=== PATIENT | male | born 1950 | race Caucasian/White ===

== ENCOUNTER → 2017-05-29 | Day surgery (SDC) | payer BC ==
[2017-05-20 08:24] VITALS: BMI 29.0
[~2017-05-29] VITALS: Ht 182.9 cm; Wt 96.4 kg
[~2017-05-29] MED LIST: ALLO100T PO; AMLO-114 PO; ASPITAB2; ATOR-54 PO; ATROPINE SULFATE 0.1 MG/ML 5ML SYR IV PRN; CHOL1000 PO; CYAN10005 PO; EpHEDrine SULFATE INJ 50 MG/ML AMP IV PRN; LIDOCAINE HCL 2% 2 ML VIAL (20MG/ML) ONE; LSN/20125 PO; METO25TA56 PO; MULTTAB58 PO; OMEG10007 PO; ONDANSETRON INJ 2 MG/ML 2 ML VIAL IV PRN; PROPOFOL IV EMULSION 10 MG/ML 20 ML VIAL IV ONE
[2017-05-29 08:45] VITALS: Ht 182.9 cm; Wt 96.4 kg
--- NOTE | 2017-05-29 09:02 | Endo History and Physical ---
History & Physical Date of Service: May 29, 2017. Chief Complaint: HX POLYPS, 5 YEAR F/U Referring Physician: DR. DANIELA DUBOIS History of Present Illness Patient with a history of colon polyps for surveillance colonoscopy today. He is no specific symptoms this morning. Past Surgical History Hx Cardiac Surgery: Yes (CARDIAC ABLATION X2) Hx Internal Defibrillator: No Hx Pacemaker: No Hx Abdominal Surgery: No Hx of Implantable Prosthesis: No Hx Post-Op Nausea and Vomiting: No Hx Cancer Surgery: No Hx Thoracic Surgery: No Hx Orthopedic: No Hx Urinary Tract Surgery: No Family History Colon CA Social History Smoking Status: Never Smoker Hx Substance Use: No Hx Alcohol Use: Yes (OCCASIONAL) Allergies Coded Allergies: Amoxicillin (Verified Allergy, Unknown, RASH, 05/20/17) Clavulanic Acid (Verified Allergy, Unknown, RASH, 05/20/17) Current Medications Reported Home Medications Medications Dose Route/Sig Max Daily Dose Days Date Category Ascriptin (Aspirin Buffered (Al Hydrox-Mg) 1 Tab Tab 81 Mg DAILY 05/29/17 Reported Vitamin D3 (Cholecalciferol) 1,000 Unit Tab 1 Tab PO DAILY 05/20/17 Reported Vitamin B-12 (Cyanocobalamin) 1,000 Mcg Tab 1,000 Mcg PO DAILY 05/20/17 Reported Norvasc (Amlodipine Besylate) 10 Mg Tab 10 Mg PO QAM 05/20/17 Reported Zyloprim (Allopurinol) 100 Mg Tab 100 Mg PO BID 05/20/17 Reported Lopressor (Metoprolol Tartrate) 25 Mg Tab 25 Mg PO BID 05/20/17 Reported [place]-3 (Fish Oil) 1 Ea Cap 2 Cap PO DAILY 11/19/11 Reported Multivitamin (Multiple Vitamin) 1 Tab Tab 1 Tab PO DAILY 11/19/11 Reported Zestoretic 20MG/12.5MG (HCTZ/Lisinopril) 1 Ea Tab 1 Tab PO QAM 11/19/11 Reported Lipitor (Atorvastatin) 20 Mg Tab 20 Mg PO QPM 11/19/11 Reported Vital Signs Weight (Kilograms): 96.36 Height (Feet): 6 Height (Inches): 0 Date Time Temp Pulse Resp B/P (MAP) Pulse Ox O2 Delivery O2 Flow Rate FiO2 05/29/17 08:57 36.4 64 16 153/83 (106) 96 Room Air Physical Exam General Appearance: no apparent distress Respiratory/Chest: Auscultation: breath sounds normal Cardiovascular: Heart Auscultation: RRR Abdomen: Inspection & Palpation: soft Assessment and Plan Colonoscopy today for surveillance of colonic polyps. Bleeding, infection, perforation, pain and the potential for missed colonic polyps.
--- NOTE | 2017-05-29 10:01 | Discharge Instructions ---
Endoscopy Patient Instructions Date / Procedure(s) Performed May 29, 2017. Colonoscopy Allergy Information Coded Allergies: Amoxicillin (Verified Allergy, Unknown, RASH, 05/20/17) Clavulanic Acid (Verified Allergy, Unknown, RASH, 05/20/17) Discharge Date / Findings May 29, 2017. 2 colon polyps Diverticulosis of the colon Hemorrhoids Medication Instructions Reported Home Medications Medications Dose Route/Sig Max Daily Dose Days Date Category Ascriptin (Aspirin Buffered (Al Hydrox-Mg) 1 Tab Tab 81 Mg DAILY 05/29/17 Reported Vitamin D3 (Cholecalciferol) 1,000 Unit Tab 1 Tab PO DAILY 05/20/17 Reported Vitamin B-12 (Cyanocobalamin) 1,000 Mcg Tab 1,000 Mcg PO DAILY 05/20/17 Reported Norvasc (Amlodipine Besylate) 10 Mg Tab 10 Mg PO QAM 05/20/17 Reported Zyloprim (Allopurinol) 100 Mg Tab 100 Mg PO BID 05/20/17 Reported Lopressor (Metoprolol Tartrate) 25 Mg Tab 25 Mg PO BID 05/20/17 Reported [place]-3 (Fish Oil) 1 Ea Cap 2 Cap PO DAILY 11/19/11 Reported Multivitamin (Multiple Vitamin) 1 Tab Tab 1 Tab PO DAILY 11/19/11 Reported Zestoretic 20MG/12.5MG (HCTZ/Lisinopril) 1 Ea Tab 1 Tab PO QAM 11/19/11 Reported Lipitor (Atorvastatin) 20 Mg Tab 20 Mg PO QPM 11/19/11 Reported Provider Instructions Activity Restrictions - No exercising or heavy lifting for 24 hours. - Do not drink alcohol the day of the procedure. - Do not drive a car or operate machinery until the day after the procedure. - Do not make any important decisions or sign important papers in 24 hours after the procedure. Following Day: - Return to full activity which may include returning to work/school. Diet Start your diet with liquids and light foods (jello, soup, juice, toast). Then eat your usual diet if not nauseated. Treatment For Common After Affects For mild abdominal pain, bloating, or excessive gas: - Rest - Eat lightly - Lie on right side Follow-Up Information Follow-up with DR. DANIELA DUBOIS as scheduled Repeat colonoscopy in 5 years Consider addition of a fiber supplement (Fiber gummy 1-2 per day) Anesthesia Information What You Should Know You have had a procedure that required some medicine to reduce anxiety and discomfort. This treatment is called moderate sedation. After receiving the treatment, you may be sleepy, but you will be able to breathe on your own. The effects of the treatment may last for several hours. Follow these instructions along with Activity/Diet recommendations noted above: * Do NOT do anything where dizziness or clumsiness would be dangerous. * Rest quietly at home today, then you can be up and about tomorrow. * Have a responsible person stay with you the rest of today. * You may have had an I.V. today. If so, you may take the dressing off later today. Recommendations Call your doctor if: * Trouble breathing * Continuous vomiting for more than 24 hours * Temperature above 101 degrees * Severe abdominal pain or bloating * Pain not relieved by pain medicine ordered * There is increased drainage or redness from any incision * A large amount of rectal bleeding greater than 2-3 tablespoons. (If you had a polyp/s removed or have hemorrhoids, a small amount of blood - from the rectum is to be expected.) * You have any unanswered questions or concerns. IN THE EVENT OF A SERIOUS EMERGENCY, GO TO THE NEAREST EMERGENCY ROOM Your discharge instructions were prepared by provider Yaneth Garcia. Patient Instructions Signature Page Gene Natalia Patient (or Guardian) Signature/Date: I have read and understand the instructions given to me by my caregivers. Caregiver/RN/Doctor Signature/Date: The above-named patient and/or guardian has received patient instructions on this date. + Original Patient Signature Page (only) stays with chart. Please make copy for patient.
--- NOTE | 2017-05-29 10:06 | GI REPORT ---
Procedure Date: 05/29/2017 9:37 AM Procedure: Colonoscopy Indications: High risk colon cancer surveillance: Personal history of colonic polyps Medicines: Monitored Anesthesia Care Complications: No immediate complications. Estimated blood loss: Minimal. Estimated Blood Loss: Estimated blood loss was minimal. Procedure: Pre-Anesthesia Assessment: - Prior to the procedure, a History and Physical was performed, and patient medications, allergies and sensitivities were reviewed. The patient's tolerance of previous anesthesia was reviewed. - The risks and benefits of the procedure and the sedation options and risks were discussed with the patient. All questions were answered and informed consent was obtained. - Patient identification and proposed procedure were verified prior to the procedure by the physician, the nurse and the inspector packager. The procedure was verified in the procedure room. - Pre-procedure physical examination revealed no contraindications to sedation. - ASA Grade Assessment: II - A patient with mild systemic disease. - After reviewing the risks and benefits, the patient was deemed in satisfactory condition to undergo the procedure. - The anesthesia plan was to use monitored anesthesia care (MAC). - Immediately prior to administration of medications, the patient was re-assessed for adequacy to receive sedatives. - The heart rate, respiratory rate, oxygen saturations, blood pressure, adequacy of pulmonary ventilation, and response to care were monitored throughout the procedure. - The physical status of the patient was re-assessed after the procedure. After I obtained informed consent, the scope was passed under direct vision. Throughout the procedure, the patient's blood pressure, pulse, and oxygen saturations were monitored continuously. The scope was introduced through the anus and advanced to the terminal ileum. The colonoscopy was performed without difficulty. The patient tolerated the procedure well. The quality of the bowel preparation was good. Findings: The perianal and digital rectal examinations were normal. Pertinent negatives include normal sphincter tone. The terminal ileum appeared normal. A 5 mm polyp was found in the ascending colon. The polyp was sessile. The polyp was removed with a cold snare. Resection and retrieval were complete. Estimated blood loss was minimal. Internal hemorrhoids were found during retroflexion. The hemorrhoids were moderate. A 6 mm polyp was found in the rectum. The polyp was sessile. The polyp was removed with a cold snare. Resection and retrieval were complete. Estimated blood loss was minimal. Multiple small and large-mouthed diverticula were found in the sigmoid colon and descending colon. The exam was otherwise without abnormality. Impression: - One 5 mm polyp in the ascending colon, removed with a cold snare. Resected and retrieved. - Internal hemorrhoids. - One 6 mm polyp in the rectum, removed with a cold snare. Resected and retrieved. - Severe diverticulosis in the sigmoid colon and in the descending colon. - The examination was otherwise normal. Recommendation: - Discharge patient to home (ambulatory). - Advance diet as tolerated daily. - Await pathology results. - Repeat colonoscopy in 5 years for surveillance. - Use fiber, for example Citrucel, Fibercon, Konsyl or Metamucil. - Return to my office PRN. Yaneth Garcia D.O. Yaneth Garcia, 05/29/2017 10:06:03 AM This report has been signed electronically. Note Initiated On: 05/29/2017 9:37 AM I attest to the content of the Intraoperative Record and orders documented therein, exceptions below
--- NOTE | 2017-05-29 10:16 | Anesthesiology Progress Note ---
Anesthesia Post Op Note Date & Time May 29, 2017 at 10:16 Vital Signs Pain Intensity: 0 Vital Signs Past 12 Hours Date Time Temp Pulse Resp B/P (MAP) Pulse Ox O2 Delivery O2 Flow Rate FiO2 05/29/17 10:02 61 16 99/58 (72) 96 Room Air 05/29/17 08:57 36.4 64 16 153/83 (106) 96 Room Air Notes Mental Status: alert / awake / arousable, participated in evaluation Pt Amnestic to Procedure: Yes Nausea / Vomiting: adequately controlled Pain: adequately controlled Airway Patency, RR, SpO2: stable & adequate BP & HR: stable & adequate Hydration State: stable & adequate Anesthetic Complications: no major complications apparent
[2017-05-29 10:32] VITALS: BP 128/72; PULSE 58; O2SAT 97
== END | disposition home or self-care (01) ==
LOC: C.GI 08:34
PROVIDERS: ATTEND Internal Medicine Gastroenterology
DX: Z12.11 Encounter for screening for malignant neoplasm of colon (principal); D12.2 Benign neoplasm of ascending colon; K64.8 Other hemorrhoids; K62.1 Rectal polyp; K57.30 Diverticulosis of large intestine without perforation or abscess without bleeding; I10 Essential (primary) hypertension; E78.5 Hyperlipidemia, unspecified; Z88.0 Allergy status to penicillin; Z88.2 Allergy status to sulfonamides; Z85.038 Personal history of other malignant neoplasm of large intestine; Z79.899 Other long term (current) drug therapy; Z80.0 Family history of malignant neoplasm of digestive organs

== ENCOUNTER → 2017-07-24 | Outpatient (CLI) | payer BC ==
[~2017-07-24] MED LIST changes: -ATROPINE SULFATE 0.1 MG/ML 5ML SYR IV PRN; -EpHEDrine SULFATE INJ 50 MG/ML AMP IV PRN; -LIDOCAINE HCL 2% 2 ML VIAL (20MG/ML) ONE; -ONDANSETRON INJ 2 MG/ML 2 ML VIAL IV PRN; -PROPOFOL IV EMULSION 10 MG/ML 20 ML VIAL IV ONE
[2017-07-24 13:42] LABS: BASO % 0.7 %; BASO ABS # 0.04 K/uL (0-0.2); EOS % 2.7 %; EOS ABS # 0.16 K/uL (0-0.5); HEMATOCRIT 41.5 % (42-52); HEMOGLOBIN 14.2 g/dL (14.0-18.0); IG# 0.02 K/uL (0.00-0.02); LYMPH % 31.8 %; LYMPH ABS # 1.85 K/uL (1.2-3.4); MEAN CELL VOLUME 95.6 fL (80-100); MEAN CORPUSCULAR HEMOGLOBIN 32.7 pg (25-34); MEAN CORPUSCULAR HGB CONC 34.2 g/dl (32-36); MEAN PLATELET VOLUME 10.7 fL (7.4-10.4); MONO % 10.1 %; MONO ABS # 0.59 K/uL (0.11-0.59); NEUT % 54.4 %; NEUT ABS # 3.16 K/uL (1.4-6.5); PLATELET COUNT 179 K/uL (130-400); RED CELL DISTRIBUTION WIDTH CV 13.9 % (11.5-14.5); RED CELL DISTRIBUTION WIDTH SD 48.6 fL (36.4-46.3); WHITE BLOOD COUNT 5.82 K/uL (4.8-10.8)
[2017-07-24 14:34] LABS: ALBUMIN 3.9 gm/dl (3.4-5.0); ALT/SGPT 31 U/L (12-78); AST/SGOT 19 U/L (15-37); BLOOD UREA NITROGEN 16 mg/dl (7-18); CALCIUM 8.8 mg/dl (8.5-10.1); CARBON DIOXIDE 24 mmol/L (21-32); CHOLESTEROL 205 mg/dl (0-200); CREATININE 0.94 mg/dl (0.60-1.40); GLUCOSE 97 mg/dl (70-99); POTASSIUM 4.2 mmol/L (3.5-5.1); SODIUM 140 mmol/L (136-145)
[2017-07-24 14:45] LABS: ALKALINE PHOSPHATASE 56 U/L (45-117); LDL CHOLESTEROL CALCULATED 118 mg/dl; TOTAL PROTEIN 7.6 gm/dl (6.4-8.2)
== END | disposition home or self-care (01) ==
LOC: C.LABBC 10:13
PROVIDERS: ATTEND Internal Medicine
DX: E78.1 Pure hyperglyceridemia (principal); E78.5 Hyperlipidemia, unspecified; M10.9 Gout, unspecified; I10 Essential (primary) hypertension; I48.91 Unspecified atrial fibrillation; Z86.010 Personal history of colon polyps

== ENCOUNTER → 2017-09-16 | Outpatient (CLI) | payer BC | END | disposition home or self-care (01) | LOC: C.LABBC 09:34 | PROVIDERS: ATTEND Urology | DX: N40.1 Benign prostatic hyperplasia with lower urinary tract symptoms (principal) ==

== ENCOUNTER → 2017-12-17 | Outpatient (CLI) | payer BC ==
[~2017-12-17] MED LIST changes: +ALFU10TA2 PO; -AMLO-114 PO; +AMLO10TA3 PO; -ASPITAB2; +COLC0.6T54 PO; +LISI20TA8 PO; -LSN/20125 PO; +RIVA1TAB4 PO
--- NOTE | 2017-12-19 19:01 | POLYSOMNOGRAPH REPORT ---
CLINICAL DATA: A 67-year-old male with BMI of 30.[address] Girish Lamb with a history of loud snoring, witnessed apnea, and fatigue. On the evening of 12/18/2015, a home sleep apnea test was performed using a [employer] type 3 monitor. RECORDING RESULTS: Total recording time was 10 hours. The patient's monitoring time and estimated sleep time was 8.4 hours. RESPIRATORY DATA: Severe sleep apnea was documented. The LAURA was 54. There were 138 obstructive, and 61 mixed apneic episodes. There were 253 hypopneic episodes. The longest respiratory event was 66 seconds. OXIMETRY DATA: Severe hypoxemia was seen. Oxygen jacobo was 59%. Mean saturation was 87%. Time below 89% was 268 minutes. HEART RATE DATA: Heart rates ranged from 32-62 beats per minute. SNORING DATA: Snoring was recorded throughout the night. IMPRESSION: Very severe sleep apnea/hypopnea with an LAURA of 54 with severe nocturnal hypoxemia. RECOMMENDATIONS: The patient may benefit from a repeat sleep study with CPAP or use of auto CPAP. Sleep medicine consultation may be of benefit. Clinical correlation is needed. SHERICED
== END | disposition home or self-care (01) ==
LOC: C.NEUR 10:24
PROVIDERS: ATTEND Internal Medicine
DX: G47.39 Other sleep apnea (principal)

== ENCOUNTER 2022-08-16 14:18 | Observation (INO) ==
--- NOTE | 2022-08-16 14:44 | ED Triage Note ---
Date of Service August 16, 2022 History of Present Illness This patient was briefly evaluated while in triage. An abbreviated physical exam was performed. This patient is a 72-year-old Male who presents to the ED for evaluation of "dehydration." He has been having some weakness and falls. He saw his PCP and they told him he was dehydrated and needed to come to the ER. Physical Exam VITALS: Vitals are noted on the nurse's note and reviewed by myself. GENERAL: This patient is a 72-year-old female, in no acute distress, well- developed well-nourished. SKIN: The skin was without rashes. EYES: Pupils equal round and reactive to light and accommodation. MOUTH: Mucous membranes moist. HEART: Regular rate and rhythm without murmurs gallops or rubs. LUNGS: Clear to auscultation bilaterally without wheezes, rales or rhonchi. ABDOMEN: Positive bowel sounds x 4. Soft,nontender to palpation. NEURO: Patient was alert and oriented to person place and time. Initial orders for labs and / or imaging were placed and patient was placed in the waiting area until a bed is available. Please see further documentation for the full ED course. MDM / Impression Impression Impression: ARTURO (acute kidney injury)
[2022-08-16 17:51] LABS: Albumin Globulin Ratio 1.2 (0.9-2); BUN Creatinine Ratio 29.3 (10-20); Bilirubin,Total 0.9 mg/dl (0.2-1.0); Calcium 9.3 mg/dl (8.6-10.3); Creatinine Clr Calc Pharmacy 34.4 ml/min; Est GFR (African American) 29.6 ml/min; Est GFR (Non-African American) 25.6 ml/min; Globulin 3.3 gm/dl (2.5-4.0); Total Protein 7.3 gm/dl (6.0-8.3)
[2022-08-16 17:54] LABS: Basophils # (auto) 0.03 K/uL (0-0.2); Basophils % (auto) 0.3 %; Eosinophils # (auto) 0.19 K/uL (0-0.50); Hematocrit (blood only) 37.6 % (42.0-52.0); Hemoglobin 12.7 g/dl (14.0-18.0); Immature Granulocytes # (auto) 0.03 K/uL (0.01-0.20); Immature Granulocytes % (auto) 0.3 %; Lymphocytes # (auto) 2.71 K/uL (1.2-3.4); Lymphocytes % (auto) 28.2 %; Mean Corpuscular Hemoglobin 33.5 pg (25.0-34.0); Mean Corpuscular Hgb Conc 33.8 g/dL (32.0-36.0); Mean Corpuscular Volume 99.2 fL (80.0-100.0); Mean Platelet Volume 10.7 fL (9.4-12.4); Monocytes # (auto) 1.04 K/uL (0.11-0.59); Monocytes % (auto) 10.8 %; Neutrophils # (auto) 5.62 K/uL (1.40-6.50); Neutrophils % (auto) 58.4 %; Platelet Count 208 K/uL (130-400); RDW Coefficient of Variation 13.7 % (11.5-14.5); RDW Standard Deviation 49.5 fL (36.4-46.3); Red Blood Count 3.79 M/uL (4.70-6.10); White Blood Count 9.62 K/ul (4.8-10.8)
[2022-08-16] MEDS ORDERED: SODIUM CHLORIDE 0.9% 1000ML 500 ML IV ONE (18:03)
--- NOTE | 2022-08-16 19:26 | CT Scan Report ---
ABDOMEN AND PELVIS CT WITHOUT CONTRAST CT DOSE: 943.13 mGycm HISTORY: Acute kidney injury. TECHNIQUE: Multiaxial CT images of the abdomen and pelvis were performed without contrast. A dose lo wering technique was utilized adhering to the principles of ALARA. COMPARISON STUDY: None. FINDINGS: Interstitial thickening at the lung bases. This is likely chronic. No pneumoperitoneum. No pneumatosis. There is a left L5 pars defect. No suspicious lytic or blastic osseous lesions. The hear t is enlarged. There is a tiny umbilical hernia containing fat and a knuckle of small bowel. Small fa t-containing bilateral inguinal hernias are noted. There are few scattered hypodense lesions within t he liver with the largest in the right hepatic lobe measuring 5.2 cm. These are incompletely characte rized on this noncontrast study but favor cysts. The unenhanced spleen, adrenal glands, pancreas, and gallbladder are unremarkable. Moderate calcified plaque within the normal caliber abdominal aorta. N o retroperitoneal lymphadenopathy. There is a 1.1 cm exophytic hypodense lesion within the upper pole of the right kidney. This is also incompletely characterized on this noncontrast study but favors a cyst. No renal or ureteral stones. No hydronephrosis. No pelvic lymphadenopathy or pelvic free fluid. The bladder is unremarkable. There are few punctate metallic densities within the mildly enlarged pr ostate gland. Suboptimal evaluation for bowel pathology due to the lack of intravenous and oral contr ast. However, there is no definite bowel wall thickening or obstruction. Extensive colonic diverticul osis. No evidence for acute diverticulitis. Normal appendix. IMPRESSION: 1. No renal or ureteral stones. No hydronephrosis. 2. No definite bowel wall thickening or obstruction. 3. Colonic diverticulosis. No evidence for acute diverticulitis. 4. Mild cardiomegaly. 5. Additional findings as described above. ACT 112: Negative or not required by law. Electronically signed by: Julian Davies M.D. 08/16/2022 7:24 PM
--- NOTE | 2022-08-16 19:41 | Emergency Department Note ---
History of Present Illness General Chief complaint: Dehydration Stated complaint: DEHYDRATION, REF BY DOC Time Seen by Provider: 08/16/22 18:01 History of Present Illness Provider complaint: Dehydrated 72-year-old male presents emergency department stating "my doctor at home to come in because I was dehydrated". Patient reports some diarrhea. He denies any abdominal pain nausea or vomiting. No chest pain or difficulty breathing. No cough. No fever. Home Medications Medication Instructions Recorded Confirmed Type cholecalciferol (vitamin D3) 125 5,000 units PO QAM 03/25/19 08/16/22 History mcg (5,000 unit) capsule cyanocobalamin (vitamin B-12) 1,000 mcg PO QAM 03/25/19 08/16/22 History 1,000 mcg capsule colchicine 0.6 mg capsule 0.6 mg PO UD PRN gout 02/15/20 08/16/22 History sildenafil 100 mg tablet 100 mg PO UD PRN sexual activity 05/04/21 08/16/22 History indapamide 1.25 mg tablet 1.25 mg PO QAM #90 tabs 04/22/22 08/16/22 Rx vardenafil 20 mg tablet 20 mg PO UD 04/22/22 08/16/22 History mirabegron 25 mg tablet,extended 25 mg PO QAM 05/30/22 08/16/22 History release 24 hr (Myrbetriq) spironolactone 25 mg tablet 25 mg PO DAILY #90 tabs 06/27/22 08/16/22 Rx allopurinol 100 mg tablet 100 mg PO BID #180 tabs 07/15/22 08/16/22 Rx rivaroxaban 20 mg tablet 20 mg PO QAM #90 tabs 07/15/22 08/16/22 Rx atorvastatin 20 mg tablet 20 mg PO DAILY 08/04/22 08/16/22 History lisinopril 40 mg tablet 20 mg PO DAILY #90 tabs 08/15/22 08/16/22 Rx diltiazem HCl 360 mg capsule,24 360 mg PO QAM 08/16/22 08/16/22 History hr,extended release (Tiadylt ER) metoprolol tartrate 25 mg tablet 25 mg PO HS 08/16/22 08/16/22 History metoprolol tartrate 25 mg tablet 50 mg PO QAM 08/16/22 08/16/22 History omega 6-hys-ouv-fish oil 1,000 mg 1 cap PO DAILY 08/16/22 08/16/22 History (120 mg-180 mg) capsule (Fish Oil) tamsulosin 0.4 mg capsule (Flomax) 0.4 mg PO Q2D 08/16/22 08/16/22 History Allergies Allergy/AdvReac Type Severity Reaction Status Date / Time amoxicillin Allergy Intermediate Hives Verified 08/16/22 19:44 clavulanic acid Allergy Intermediate Hives Verified 08/16/22 19:44 Past Med/Surg History Medical History Atrial fibrillation (11/19/11) dx 9 YRS AGO, NO HX CARDIOVERSION--xarelto daily--follows with Dr. Chavez Dysuria Enlarged prostate Gout HX History of colonic polyps History of skin cancer REMOVED HTN (hypertension) Hyperlipidemia, acquired Male erectile disorder (11/19/11) On anticoagulant therapy xarelto daily d/t Afib Prostate cancer (11/03/17) HX 3 YR AGO, HX RADIATION Rectal bleeding REASON FOR UPCOMING PROCEDURE Severe sleep apnea CPAP Surgical History History of cardiac radiofrequency ablation X2 History of [place] last [place]/21 [place] Family History Father Cardiac disorder Colorectal cancer Hypertension Mother Diabetes Hypertension Gallbladder disease Uncle Myocardial infarction, Onset Age: 70 Brother Hypertension Sister Hypertension Other No family history of adverse response to anesthesia Denies family history of Crohn's disease Ulcerative colitis Social History Smoking Status: Never smoker Second Hand Exposure: No; Hx Alcohol Use: Yes Alcohol type: beer Hx Substance Use: No Preferred Language: Citizen Of [place] Communication Ability: Effective Visual Impairment: Limited Hearing Ability: Normal Medical Front Desk Coordinator Required: No Beliefs That Will Affect Care: None marital status: Current Living Situation: Spouse current occupational status: retired current occupation: worked at [employer] at [employer] Feels Safe at Home: Yes Childhood Exposure to Second-Hand Smoke: No caffeine: Yes Dental Care, Regularly: Yes Physical Activity Frequency: Daily Seatbelt Use: always Sunscreen Use: Yes Assistive Devices: CPAP and Glasses Physical Exam Vital Signs Vital Signs - 24 hr 08/16/22 14:40 08/16/22 18:26 08/16/22 20:26 Temperature 36.9 C Temperature Source Temporal Artery Scan Pulse Rate 50 L Pulse Rate [Right Finger] 51 L 62 Respiratory Rate 18 18 18 Respiratory Effort / Characteristics Non-Labored Spontaneous Non-Labored Spontaneous Respiratory Depth Normal Normal Respiratory Pattern Regular Regular Blood Pressure 100/65 Blood Pressure [Right Arm] 151/75 H 113/59 L Blood Pressure Mean 76 Blood Pressure Mean [Right Arm] 100 77 Blood Pressure Position Sitting Blood Pressure Position [Right Arm] Lying Pulse Oximetry 95 97 97 Oxygen Delivery Method Room Air Room Air Room Air Sepsis Recent Fever Within 48 Hours No Sepsis New/Unexplained Change in Mental Status N/A Sepsis Action Taken by Nursing No Action Required 08/16/22 22:49 Temperature Temperature Source Pulse Rate Pulse Rate [Right Finger] 56 L Respiratory Rate 20 Respiratory Effort / Characteristics Non-Labored Respiratory Depth Respiratory Pattern Blood Pressure Blood Pressure [Right Arm] 133/71 Blood Pressure Mean Blood Pressure Mean [Right Arm] 91 Blood Pressure Position Blood Pressure Position [Right Arm] Pulse Oximetry 95 Oxygen Delivery Method Room Air Sepsis Recent Fever Within 48 Hours Sepsis New/Unexplained Change in Mental Status Sepsis Action Taken by Nursing Physical Exam GENERAL: oriented to person, place, and time. appears well-developed and well- nourished. HENT: Exam performed. - Head: Normocephalic and atraumatic. EYES: Conjunctivae and EOM are normal. Right eye exhibits no discharge. Left eye exhibits no discharge. No scleral icterus. NECK: Normal range of motion. Neck supple. No JVD present. CV: Normal rate, regular rhythm, normal heart sounds and intact distal pulses. There is no peripheral edema. Palpable radial pulses bue. PULM/CHEST: Effort normal and breath sounds normal. No respiratory distress. No stridor. no wheezes. no rales. ABD: The abdomen is soft. There is no tenderness. NEURO: Motor and sensation grossly intact. SKIN: Skin is warm and dry. He is not diaphoretic. PSYCH: normal mood and affect. Behavior is normal. Judgment and thought content normal. Course Course 1800: The patient was evaluated in room B11B. A complete history and physical exam was performed Administered Medications Discontinued Medications Sodium Chloride (Nss 1000ml) 500 mls @ 999 mls/hr IV .Q31M ONE Stop: 08/16/22 18:33 Last Infusion: 08/16/22 18:59 Dose: 0 mls/hr Documented By: Admin: 08/16/22 18:28 Dose: 999 mls/hr Documented By: JOSEMANUEL Medical Decision Making Medical Records Attestation: I reviewed the patient's medical records. External medical records were reviewed. Patient was seen in the emergency department on August 04, 2022, 12 days ago. The patient was seen for a fall and had a negative CT of the head. Patient had blood work done yesterday and today prior to arrival in the emergency department. Patient's creatinine on August 15, 2022 was 2.18 his creatinine and August 16, 2022 was 2.71. Patient's baseline creatinine runs around 1. Laboratory Data Attestation: I reviewed the patient's lab results. 08/16/22 17:04 08/16/22 17:04 Lab Results 08/16/22 08/16/22 08/16/22 Range/Units 17:04 17:04 18:29 WBC 9.62 (4.8-10.8) K/ul RBC 3.79 L (4.70-6.10) M/uL Hgb 12.7 L (14.0-18.0) g/dl Hct 37.6 L (42.0-52.0) % MCV 99.2 (80.0-100.0) fL MCH 33.5 (25.0-34.0) pg MCHC 33.8 (32.0-36.0) g/dL RDW Std Deviation 49.5 H (36.4-46.3) fL RDW Coeff of Georges 13.7 (11.5-14.5) % Plt Count 208 (130-400) K/uL MPV 10.7 (9.4-12.4) fL Immature Gran % (Auto) 0.3 % Neut % (Auto) 58.4 % Lymph % (Auto) 28.2 % [place] % (Auto) 10.8 % Eos % (Auto) 2.0 % Baso % (Auto) 0.3 % Neut # (Auto) 5.62 (1.40-6.50) K/uL Lymph # (Auto) 2.71 (1.2-3.4) K/uL [place] # (Auto) 1.04 H (0.11-0.59) K/uL Eos # (Auto) 0.19 (0-0.50) K/uL Baso # (Auto) 0.03 (0-0.2) K/uL Immature Gran # (Auto) 0.03 (0.01-0.20) K/uL Sodium 135 L (136-145) mmol/L Potassium 5.0 (3.5-5.1) mmol/L Chloride 105 (98-107) mmol/L Carbon Dioxide 22 (21-32) mmol/L Anion Gap 8 (3-11) BUN 72 H (6-23) mg/dl Creatinine 2.46 H (0.6-1.4) mg/dl Est Cr Clr Drug Dosing 34.4 ml/min Est GFR ( Amer) 29.6 ml/min Est GFR (Non-Af Amer) 25.6 ml/min BUN/Creatinine Ratio 29.3 H (10-20) Glucose 94 (70-99(Fasting)) mg/dl Calcium 9.3 (8.6-10.3) mg/dl Total Bilirubin 0.9 (0.2-1.0) mg/dl AST 21 (13-39) U/L ALT 25 (7-52) U/L Alkaline Phosphatase 58 (34-104) U/L Total Protein 7.3 (6.0-8.3) gm/dl Albumin 4.0 (3.4-5.0) gm/dl Globulin 3.3 (2.5-4.0) gm/dl Albumin/Globulin Ratio 1.2 (0.9-2) Urine Color Urine Appearance (Clear) Urine pH (4.5-7.5) Ur Specific [place] (1.000-1.030) Urine Protein (Negative) Urine Glucose (UA) (Negative) Urine Ketones (Negative) Urine Blood (Negative) Urine Nitrite (Negative) Urine Bilirubin (Negative) Urine Urobilinogen (Negative) Ur Leukocyte Esterase (Negative) Urine Osmolality (500-800) mOsm/kg Ur Random Creatinine mg/dl Ur Random Sodium mmol/L SARS-CoV-2, RNA, NAAT NEGATIVE (NEGATIVE) 08/16/22 08/16/22 08/16/22 Range/Units 21:48 21:48 21:48 WBC (4.8-10.8) K/ul RBC (4.70-6.10) M/uL Hgb (14.0-18.0) g/dl Hct (42.0-52.0) % MCV (80.0-100.0) fL MCH (25.0-34.0) pg MCHC (32.0-36.0) g/dL RDW Std Deviation (36.4-46.3) fL RDW Coeff of Georges (11.5-14.5) % Plt Count (130-400) K/uL MPV (9.4-12.4) fL Immature Gran % (Auto) % Neut % (Auto) % Lymph % (Auto) % [place] % (Auto) % Eos % (Auto) % Baso % (Auto) % Neut # (Auto) (1.40-6.50) K/uL Lymph # (Auto) (1.2-3.4) K/uL [place] # (Auto) (0.11-0.59) K/uL Eos # (Auto) (0-0.50) K/uL Baso # (Auto) (0-0.2) K/uL Immature Gran # (Auto) (0.01-0.20) K/uL Sodium (136-145) mmol/L Potassium (3.5-5.1) mmol/L Chloride (98-107) mmol/L Carbon Dioxide (21-32) mmol/L Anion Gap (3-11) BUN (6-23) mg/dl Creatinine (0.6-1.4) mg/dl Est Cr Clr Drug Dosing ml/min Est GFR ( Amer) ml/min Est GFR (Non-Af Amer) ml/min BUN/Creatinine Ratio (10-20) Glucose (70-99(Fasting)) mg/dl Calcium (8.6-10.3) mg/dl Total Bilirubin (0.2-1.0) mg/dl AST (13-39) U/L ALT (7-52) U/L Alkaline Phosphatase (34-104) U/L Total Protein (6.0-8.3) gm/dl Albumin (3.4-5.0) gm/dl Globulin (2.5-4.0) gm/dl Albumin/Globulin Ratio (0.9-2) Urine Color Yellow Urine Appearance Clear (Clear) Urine pH 5.0 (4.5-7.5) Ur Specific [place] 1.010 (1.000-1.030) Urine Protein Negative (Negative) Urine Glucose (UA) Negative (Negative) Urine Ketones Negative (Negative) Urine Blood Negative (Negative) Urine Nitrite Negative (Negative) Urine Bilirubin Negative (Negative) Urine Urobilinogen Negative (Negative) Ur Leukocyte Esterase Negative (Negative) Urine Osmolality 408 L (500-800) mOsm/kg Ur Random Creatinine 44.1 mg/dl Ur Random Sodium 87 mmol/L SARS-CoV-2, RNA, NAAT (NEGATIVE) Imaging Data Attestation: I personally reviewed and interpreted this imaging study as follows: Radiologist's Impression: Abdomen/Pelvis CT 08/16/22 18:[address] WITHOUT CONTRAST CT DOSE: 943.13 mGycm HISTORY: Acute kidney injury. TECHNIQUE: Multiaxial CT images of the abdomen and pelvis were performed without contrast. A dose lowering technique was utilized adhering to the principles of ALARA. COMPARISON STUDY: None. FINDINGS: Interstitial thickening at the lung bases. This is likely chronic. No pneumoperitoneum. No pneumatosis. There is a left L5 pars defect. No suspicious lytic or blastic osseous lesions. The heart is enlarged. There is a tiny umbilical hernia containing fat and a knuckle of small bowel. Small fat- containing bilateral inguinal hernias are noted. There are few scattered hypo dense lesions within the liver with the largest in the right hepatic lobe measuring 5.2 cm. These are incompletely characterized on this noncontrast study but favor cysts. The unenhanced spleen, adrenal glands, pancreas, and gallbladder are unremarkable. Moderate calcified plaque within the normal c aliber abdominal aorta. No retroperitoneal lymphadenopathy. There is a 1.1 cm exophytic hypodense lesion within the upper pole of the right kidney. This is also incompletely characterized on this noncontrast study but favors a cyst. No renal or ureteral stones. No hydronephrosis. No pelvic lymphadenopathy or pelvic free fluid. The bladder is unremarkable. There are few punctate metallic densities within the mildly enlarged prostate gland. Suboptimal evaluation for bowel pathology due to the lack of intravenous and oral contrast. However, there is no definite bowel wall thickening or obstruction. Extensive colonic diverticulosis. No evidence for acute diverticulitis. Normal appendix. IMPRESSION: 1. No renal or ureteral stones. No hydronephrosis. 2. No definite bowel wall thickening or obstruction. 3. Colonic diverticulosis. No evidence for acute diverticulitis. 4. Mild cardiomegaly. 5. Additional findings as described above. ACT 112: Negative or not required by law. Electronically signed by: Julian Davies M.D. 08/16/2022 7:24 PM ECG Data Attestation: I personally reviewed and interpreted this ECG as follows: Rate (beats per minute): 45 Rhythm: + normal sinus ECG Intervals/blocks: + Right Bundle branch block and + Normal QT-c ECG ST segments: + Normal ST segments MDM Narrative Cardiac monitoring: An order was placed for continuous cardiac monitoring. The monitor shows a rate of 50 with atrial fibrilation rhythm interpreted by me Labs show an elevated creatinine. No obstructive stones. Patient will be admitted for elevated creatinine and receive IV hydration. Dr. yCr [facility] hospitalist was notified. Impression & Plan ARTURO (acute kidney injury) Discharge Plan Visit Data Chief Complaint: Dehydration Stated Complaint: DEHYDRATION, REF BY DOC ED Provider: Slick Carlos Discharge Problem: ARTURO (acute kidney injury) Patient Disposition: Admitted As Inpatient Discharge Instructions Interventions: ED Discharge Assessment Last Done: 08/16/22 23:06
--- NOTE | 2022-08-16 21:25 | History & Physical Report ---
Date of Service August 16, 2022 Assessment & Plan (1) Acute renal insufficiency: Plan: Patient is a 72-year-old male with past medical history of gout, chronic anticoagulation, atrial fibrillation, urinary frequency, hypertension, and severe sleep apnea with CPAP use who presented to the ED for evaluation for dehydration. Patient had elevated creatinine level indicative of acute kidney injury. Patient is status post 1 L of IV fluid in the ED and is hemodynamically stable. -Admit to [facility], no need for telemetry given normal electrolytes -Likely prerenal in the setting of poor water intake, loose stools for the past 2 weeks, and multiple blood pressure medications that can affect kidney function. -History of prostate cancer requiring radiation so possible post renal component. -urine sodium, creatinine ordered--> FENa calculation pending results -Status post 1 L normal saline, continue at 125 cc/h x 2 bags -Hold spironolactone, lisinopril, indapamide -Daily BMP -EKG with chest pain (2) Hypertension: Plan: -Hold spironolactone, lisinopril, indapamide as above -Continue metoprolol (3) Loose stools: Plan: -Unsure of etiology at this time, may be infectious but is not showing any symptoms and unlikely to be food poisoning given 2-weeks of symptoms -Unlikely to be C. difficile as well. No recent antibiotic use and stool still very much has solid components -Stool PCR ordered -Imodium after every bowel movement ordered (4) Hyperlipidemia, acquired: Plan: -Continue statin (5) Severe sleep apnea: Plan: -CPAP at night at 7 cmH20 (6) Atrial fibrillation: Plan: -Continue metoprolol -Patient does not take diltiazem which is in his medication list -Continue Xarelto for anticoagulation (7) Gout: Plan: -Continue allipurinol Plan DVT Proph: Xarelto Diet: Heart Healthy Dispo: Admit to med surg Code Status: Full Code History of Present Illness Chief Complaint: Dehydration Primary Care Provider: Girish Lamb MD Patient is a 72-year-old male with past medical history of gout, chronic anticoagulation, atrial fibrillation, urinary frequency, hypertension, and severe sleep apnea with CPAP use who presented to the ED for evaluation for dehydration. He had some routine lab testing by his PCP. They had performed him that he was dehydrated and recommended drinking plenty of water and rechecking his kidney function today and his creatinine had actually worsened. For this reason they called him and recommended he go to the emergency room for dehydration. Patient notes that he also has been having some weakness for the past few days as well. Eating well but reports he does not drink as much water as he feels that he should. is at the bedside and confirms that he does not drink much water. He was recently put on spironolactone at the end of June on top of several other medications for his hypertension. A dditionally, patient reports for the past 2 weeks he has had loose stools reporting 3-5 bowel movements per day that are type V to type on the Iron stool scale chart. No recent travel. No nausea or vomiting. Eating without difficulty. No blood noted in stools. Patient has a history of prostate cancer for which he received radiation treatment and has had continuously downtrending PSAs. No longer receiving treatment. Otherwise no other complaints at this time. Allergies Allergy/AdvReac Type Severity Reaction Status Date / Time amoxicillin Allergy Intermediate Hives Verified 08/16/22 19:44 clavulanic acid Allergy Intermediate Hives Verified 08/16/22 19:44 Home Medications Medication Instructions Recorded Confirmed Type cholecalciferol (vitamin D3) 125 5,000 units PO QAM 03/25/19 08/16/22 History mcg (5,000 unit) capsule cyanocobalamin (vitamin B-12) 1,000 mcg PO QAM 03/25/19 08/16/22 History 1,000 mcg capsule colchicine 0.6 mg capsule 0.6 mg PO UD PRN gout 02/15/20 08/16/22 History sildenafil 100 mg tablet 100 mg PO UD PRN sexual activity 05/04/21 08/16/22 History indapamide 1.25 mg tablet 1.25 mg PO QAM #90 tabs 04/22/22 08/16/22 Rx vardenafil 20 mg tablet 20 mg PO UD 04/22/22 08/16/22 History mirabegron 25 mg tablet,extended 25 mg PO QAM 05/30/22 08/16/22 History release 24 hr (Myrbetriq) spironolactone 25 mg tablet 25 mg PO DAILY #90 tabs 06/27/22 08/16/22 Rx allopurinol 100 mg tablet 100 mg PO BID #180 tabs 03/13/23 04/14/23 Rx rivaroxaban 20 mg tablet 20 mg PO QAM #90 tabs 07/15/22 08/16/22 Rx atorvastatin 20 mg tablet 20 mg PO DAILY 08/04/22 08/16/22 History lisinopril 40 mg tablet 20 mg PO DAILY #90 tabs 08/15/22 08/16/22 Rx diltiazem HCl 360 mg capsule,24 360 mg PO QAM 08/16/22 08/16/22 History hr,extended release (Tiadylt ER) metoprolol tartrate 25 mg tablet 25 mg PO HS 08/16/22 08/16/22 History metoprolol tartrate 25 mg tablet 50 mg PO QAM 08/16/22 08/16/22 History omega 4-wsl-uxq-fish oil 1,000 mg 1 cap PO DAILY 08/16/22 08/16/22 History (120 mg-180 mg) capsule (Fish Oil) tamsulosin 0.4 mg capsule (Flomax) 0.4 mg PO Q2D 08/16/22 08/16/22 History Past Med/Surg History Medical History Atrial fibrillation (11/19/11) dx 9 YRS AGO, NO HX CARDIOVERSION--xarelto daily--follows with Dr. Chavez Dysuria Enlarged prostate Gout HX History of colonic polyps History of skin cancer REMOVED HTN (hypertension) Hyperlipidemia, acquired Male erectile disorder (11/19/11) On anticoagulant therapy xarelto daily d/t Afib Prostate cancer (11/03/17) HX 3 YR AGO, HX RADIATION Rectal bleeding REASON FOR UPCOMING PROCEDURE Severe sleep apnea CPAP Surgical History History of cardiac radiofrequency ablation X2 History of [place] last [place]/21 @ [place] Family History Father Cardiac disorder Colorectal cancer Hypertension Mother Diabetes Hypertension Gallbladder disease Uncle Myocardial infarction, Onset Age: 70 Brother Hypertension Sister Hypertension Other No family history of adverse response to anesthesia Denies family history of Crohn's disease Ulcerative colitis Social History Smoking Status: Never smoker Second Hand Exposure: No; Do You Dip or Chew Tobacco: No; Hx Alcohol Use: Yes Alcohol type: beer Hx Substance Use: No Preferred Language: [place] Communication Ability: Effective Visual Impairment: Limited Hearing Ability: Normal Manager Knowledge Required: No Beliefs That Will Affect Care: None marital status: Current Living Situation: Spouse current occupational status: retired current occupation: worked at [employer] at [employer] Other Information That Helps Us Care for You: No Feels Safe at Home: Yes Safety Concerns: Feels Safe At This Time Childhood Exposure to Second-Hand Smoke: No caffeine: Yes Dental Care, Regularly: Yes Physical Activity Frequency: Daily Seatbelt Use: always Sunscreen Use: Yes Assistive Devices: CPAP and Glasses Review of Systems Review of Systems: All systems reviewed & are unremarkable except as noted in HPI & below Physical Exam Constitutional: WD/WN, vitals as above Eyes: + anicteric sclerae ENMT: Mouth: + oral mucosal abnormality (dry oral mucosa) Neck: trachea midline, no thyromegaly Respiratory: normal respiratory effort, lungs clear to auscultation Cardiovascular: Rate/Rhythm: + irregularly irregular Extremities: no edema Gastrointestinal (Abdomen): normal bowel sounds, soft, nontender, no hepatosplenomegaly Musculoskeletal: Head/Neck/Chest: normocephalic and head atraumatic Skin: no rashes, warm and dry Neurologic: moves all extremities Psychiatric: A+Ox3, euthymic affect Lymphatic: no cervical or axillary lymphadenopathy Results & Data Results & Data Vital Signs (Past 12 Hours) Vital Signs Temp Pulse Pulse Resp BP BP Pulse Ox 08/16/22 18:26 51 L 18 151/75 H 97 08/16/22 14:40 36.9 C 50 L 18 100/65 95 O2 Del Method 08/16/22 18:26 Room Air 08/16/22 14:40 Room Air Code Status & VTE Plan VTE Prophylaxis Plan VTE Prophylaxis will be ordered: Yes Supervising Physician Co-Signing Physician Notes Attending addendum: I have physically seen this patient, have supervised the medical residents activities, and agree with the H&P unless as otherwise noted. Assessment and Plan:. Acute kidney injury- Creatinine 2.46 on admission, with base 1.31 Hold lisinopril, indapamide and spironolactone Received 1 L normal saline in the ED Gentle IV fluid rehydration and recheck laboratories in a.m. Hypertension/atrial fibrillation- Holding lisinopril, indapamide and spironolactone as noted above Continue diltiazem, metoprolol and Xarelto Loose stools- Studies pending Likely cause of dehydration and acute kidney injury Hyperlipidemia- Continue atorvastatin BPH- Continue tamsulosin Bladder spasm- Continue mirabegron Gout- Continue allopurinol and colchicine Hold indapamide Remaining orders and notations as noted (6) Atrial fibrillation Atrial fibrillation type: paroxysmal Qualified Code(s): I48.0 - Paroxysmal atrial fibrillation
[2022-08-16 22:08] LABS: Appearance Urine Clear (Clear); Bilirubin Urine Negative (Negative); Blood Urine Negative (Negative); Color Urine Yellow; Glucose Urine UA Negative (Negative); Ketones Urine Negative (Negative); Leukocyte Esterase Urine Negative (Negative); Nitrite Urine Negative (Negative); Protein Urine Negative (Negative); Urobilinogen Urine Negative (Negative)
[2022-08-16 22:38] LABS: Creatinine Urine Random 44.1 mg/dl
[2022-08-17] MEDS ORDERED: ACETAMINOPHEN 325 MG TAB PO PRN (00:18)
[2022-08-17] MEDS ORDERED: LOPERAMIDE HCL 2 MG CAP PO PRN (00:18)
[2022-08-17] MEDS ORDERED: ONDANSETRON INJ 2 MG/ML 2 ML VIAL IV PRN (00:18)
[2022-08-17] MEDS: SODIUM CHLORIDE 0.9% 1000ML 1,000 ML IV SCH ×3 (00:52→17:13)
[2022-08-17 07:03] LABS: Hematocrit (blood only) 35.5 % (42.0-52.0); Hemoglobin 12.3 g/dl (14.0-18.0); Mean Corpuscular Hemoglobin 34.3 pg (25.0-34.0); Mean Corpuscular Hgb Conc 34.6 g/dL (32.0-36.0); Mean Corpuscular Volume 98.9 fL (80.0-100.0); Mean Platelet Volume 10.4 fL (9.4-12.4); Platelet Count 172 K/uL (130-400); RDW Coefficient of Variation 13.4 % (11.5-14.5); RDW Standard Deviation 48.8 fL (36.4-46.3); Red Blood Count 3.59 M/uL (4.70-6.10); White Blood Count 7.16 K/ul (4.8-10.8)
[2022-08-17 07:21] LABS: BUN Creatinine Ratio 32.7 (10-20); Calcium 8.9 mg/dl (8.6-10.3); Creatinine Clr Calc Pharmacy 51.6 ml/min; Est GFR (African American) 49.1 ml/min; Est GFR (Non-African American) 42.4 ml/min; Magnesium 2.1 mg/dl (1.7-2.4); Potassium 5.4 mmol/L (3.5-5.1)
--- NOTE | 2022-08-17 07:35 | Electrocardiogram Report ---
Test Reason : Blood Pressure : / mmHG Vent. Rate : 045 BPM Atrial Rate : 375 BPM P-R Int : 000 ms QRS Dur : 146 ms QT Int : 476 ms P-R-T Axes : 000 -17 010 degrees QTc Int : 411 ms Poor data quality, interpretation may be adversely affected Atrial fibrillation with slow ventricular response Right bundle branch block Abnormal ECG When compared with ECG of 05-AUG-2022 12:17, QT has shortened Confirmed by Blade Chavez ([id number]) on 08/17/2022 7:35:12 AM Referred By: Girish Lamb Confirmed By:Raleigh Chavez
--- NOTE | 2022-08-17 08:18 | Hospitalist Progress Note ---
Date of Service August 17, 2022 Assessment & Plan (1) Acute renal insufficiency: Plan: Pt is a 72 yo male with past medical history of gout, atrial fibrillation on chronic anticoagulation, urinary frequency, hypertension, and severe sleep apnea with CPAP use who presented to the ED for evaluation for dehydration. Patient had elevated creatinine level indicative of acute kidney injury. Patient is status post 1 L of IV fluid in the ED and is hemodynamically stable. ARTURO - Likely prerenal in the setting of poor water intake, loose stools for multiple weeks/months, and multiple BP medications that can affect kidney function - History of prostate cancer requiring radiation; post renal component seems unlikely considering lack of urinary symptoms and significant improvement with adequate hydration - Cr peaked at 2.71 and has since downtrended but not at baseline - Continue NS at 125 cc/hr - Continue to hold spironolactone, lisinopril, indapamide; may need to consider change of outpatient regimen if ARTURO attributable to BP meds Hyperkalemia - uptrending to 5.4 today - asymptomatic, will continue to monitor w/ BMP HTN - continue holding spironolactone, lisinopril, indapamide as above - continue metoprolol Loose stools - unsure of etiology at this time; may be infectious, however, w/o prolonged symptoms - unlikely to be food poisoning given prolonged course - unlikely to be C. difficile as no recent antibiotic use and stool still very much has solid components - Stool PCR ordered - Imodium PRN HLD -Continue statin Severe sleep apnea -CPAP at night at 7 cmH20 Afib - Continue metoprolol - Patient does not take diltiazem which is in his medication list - Continue Xarelto for anticoagulation Gout -Continue allopurinol (2) Hypertension: (3) Loose stools: (4) Hyperlipidemia, acquired: (5) Severe sleep apnea: (6) Atrial fibrillation: (7) Gout: (8) Hyperkalemia: Plan DVT ppx: Xarelto Diet: Heart Healthy Dispo: med surg Code Status: Full Admission and Anticipated Discharge Date Admission Date: August 16, 2022 Supervising Physician Co-Signing Physician Notes I personally examined the patient and verified all sanders points of history and exam, discussed case, and agree with decision making with Dr Ellis Feeling better. Diarrhea little bit hard to describeprobably moderate volume sometimes more sometimes less, pudding to mild consistency, 3-4 times a day for the last 3 weeks. Also his bigger suspicion is the diuretics causing dehydration. Vitals noted, in general he is awake and alert pleasant no distress. HEENT normocephalic atraumatic mucous membranes moist. Breathing unlabored no accessory muscle use good effort. Skin shows no rashes no pallor or icterus. Neuro without focal deficits. Abdomen soft nondistended nontender no masses organomegaly. Acute renal failurevolume downdehydration mechanism, I agree with him that the diuretics were most likely culprit. These have now been placed on hold. Continue hydration. Hyperkalemia likely residual from spironolactone, anticipate this to improve with ongoing fluids and time. Diarrheasomewhat ill-defined, fecal BioFire ordered, although I doubt it is going to be with much yield. Abdomen is benign. wonders if it relates to being dehydratedgiven the timeline of when it started, the certainly quite reasonable too. Hopefully home tomorrow. Subjective Patient seen at bedside this AM. Overall, he feels well. He has not had a BM since coming to the hospital and has not taken medications to prevent BM. Pt does endorse that these loose stools probably have been going on longer than 2 weeks. He endorses having an cold-like illness in Apr/May and his bowels seem to have not normalized since then. Pt's also had this illness; however, her symptoms completely resolved after about 3 weeks. Denies abdominal pain, chest pain, SOB, and leg pains. Review of Systems Review of Systems: All systems reviewed & are unremarkable except as noted in HPI & below Physical Exam Constitutional: NAD. Vitals WNL. Eyes: no conjunctival abnormality Respiratory: CTA bilaterally. No rhonchi, wheezing, or crackles. Non labored breathing. Cardiovascular: Irregularly irregular rhythm, normal rate. No murmur noted. No LE edema. Gastrointestinal (Abdomen): Nontender, +BS. No masses noted. Skin: no rashes, warm and dry Psychiatric: Alert. Mood and affect congruent. Results & Data Results & Data Vital Signs (Past 12 Hours) Vital Signs Temp Pulse Pulse Resp BP BP Pulse Ox 08/17/22 07:00 73 18 145/78 H 94 08/17/22 07:25 36.4 C L 08/17/22 01:15 72 23 95 08/17/22 00:22 36.4 C L 72 14 148/68 H 95 08/16/22 22:49 56 L 20 133/71 95 08/16/22 20:26 62 18 113/59 L 97 O2 Del Method 08/17/22 07:00 Room Air 08/17/22 07:25 08/17/22 01:15 08/17/22 00:22 Room Air 08/16/22 22:49 Room Air 08/16/22 20:26 Room Air Resident Activity Tracking Resident Involvement: Resident Care Provided Care Provided: Adult Hospital Medicine (6) Atrial fibrillation Atrial fibrillation type: paroxysmal Qualified Code(s): I48.0 - Paroxysmal atrial fibrillation
[2022-08-17] MEDS ORDERED: TAMSULOSIN HCL 0.4 MG CAP PO SCH (09:00)
[2022-08-17] MEDS: CYANOCOBALAMIN (B-12) 500 MCG TABLET PO SCH (09:41)
[2022-08-17] MEDS: allopurinoL 100 MG TAB PO SCH ×2 (09:41→20:40)
[2022-08-17] MEDS: MIRABEGRON ER 25 MG TAB PO SCH (09:41)
[2022-08-17] MEDS: METOPROLOL TARTRATE 50 MG TAB PO SCH (09:41)
[2022-08-17] MEDS: ATORVASTATIN 20 MG TAB PO SCH (09:41)
[2022-08-17] MEDS: CHOLECALCIFEROL 5,000 UNITS 125 MCG TAB PO SCH (09:41)
[2022-08-17] MEDS: OMEGA-3 (PURIFIED FISH OIL) 1 GM CAP PO SCH (09:41)
[2022-08-17] MEDS ORDERED: RIVAROXABAN 20 MG TAB PO SCH (16:30)
--- NOTE | 2022-08-17 19:35 | Billing Data ---
Date of Service August 17, 2022 Coding Level of Care Code 74340 INT INP/OBS CARE
--- NOTE | 2022-08-17 19:52 | Billing Data ---
Date of Service August 17, 2022 Coding Level of Care Code 46855 SUB INP/OBS CARE MIN
[2022-08-17] MEDS ORDERED: METOPROLOL TARTRATE 25 MG TAB PO SCH (21:00)
[2022-08-18] MEDS: SODIUM CHLORIDE 0.9% 1000ML 1,000 ML IV SCH ×2 (01:05→09:53)
[2022-08-18 07:28] LABS: BUN Creatinine Ratio 23.3 (10-20); Calcium 8.6 mg/dl (8.6-10.3); Creatinine Clr Calc Pharmacy 64.8 ml/min; Est GFR (African American) 64.7 ml/min; Est GFR (Non-African American) 55.8 ml/min; Potassium 5.2 mmol/L (3.5-5.1)
[2022-08-18 07:38] VITALS: PULSE 81; TEMP 97.5; O2SAT 96
[2022-08-18] MEDS: METOPROLOL TARTRATE 50 MG TAB PO SCH (08:31)
[2022-08-18] MEDS: CHOLECALCIFEROL 5,000 UNITS 125 MCG TAB PO SCH (08:31)
[2022-08-18] MEDS: ATORVASTATIN 20 MG TAB PO SCH (08:31)
[2022-08-18] MEDS: OMEGA-3 (PURIFIED FISH OIL) 1 GM CAP PO SCH (08:31)
[2022-08-18] MEDS: CYANOCOBALAMIN (B-12) 500 MCG TABLET PO SCH (08:31)
[2022-08-18] MEDS: allopurinoL 100 MG TAB PO SCH (08:31)
[2022-08-18] MEDS: MIRABEGRON ER 25 MG TAB PO SCH (08:32)
--- NOTE | 2022-08-18 14:33 | Discharge Summary ---
Date of Service August 18, 2022 Admission HPI Per Admitting Provider Patient is a 72-year-old male with past medical history of gout, chronic anticoagulation, atrial fibrillation, urinary frequency, hypertension, and severe sleep apnea with CPAP use who presented to the ED for evaluation for dehydration. He had some routine lab testing by his PCP. They had performed him that he was dehydrated and recommended drinking plenty of water and rechecking his kidney function today and his creatinine had actually worsened. For this reason they called him and recommended he go to the emergency room for dehydration. Patient notes that he also has been having some weakness for the past few days as well. Eating well but reports he does not drink as much water as he feels that he should. is at the bedside and confirms that he does not drink much water. He was recently put on spironolactone at the end of June on top of several other medications for his hypertension. Additionally, patient reports for the past 2 weeks he has had loose stools reporting 3-5 bowel movements per day that are type V to type on the [place] stool scale chart. No recent travel. No nausea or vomiting. Eating without difficulty. No blood noted in stools. Patient has a history of prostate cancer for which he received radiation treatment and has had continuously downtrending PSAs. No longer receiving treatment. Otherwise no other complaints at this time. Admission Exam Per Admitting Provider Constitutional: WD/WN, vitals as above Eyes: + anicteric sclerae ENMT: Mouth: + oral mucosal abnormality (dry oral mucosa) Neck: trachea midline, no thyromegaly Respiratory: normal respiratory effort, lungs clear to auscultation Cardiovascular: Rate/Rhythm: + irregularly irregular Extremities: no edema Gastrointestinal (Abdomen): normal bowel sounds, soft, nontender, no hepatosplenomegaly Musculoskeletal: Head/Neck/Chest: normocephalic and head atraumatic Skin: no rashes, warm and dry Neurologic: moves all extremities Psychiatric: A+Ox3, euthymic affect Lymphatic: no cervical or axillary lymphadenopathy Principal Diagnosis ARTURO Discharge Exam Constitutional: well appearing, no acute distress HEENT: normocephalic, no conjunctival injection CV: irregularly irregular rhythm, regular rate, no murmur, no LE edema Respiratory: Clear to auscultation bilaterally. No rhonchi, wheezes, or crackles. No increased work of breathing MSK: no gross deformities noted Skin: warm, dry, no rashes Neuro: alert, oriented, no FND noted Discharge Data Allergies Allergy/AdvReac Type Severity Reaction Status Date / Time amoxicillin Allergy Intermediate Hives Verified 08/16/22 19:44 clavulanic acid Allergy Intermediate Hives Verified 08/16/22 19:44 Consultations 08/16/22 19:38 ED Decision to Admit Stat Ordered Studies 08/16/22 18:10 CT abd pelvis wo con Stat 1. No renal or ureteral stones. No hydronephrosis. 2. No definite bowel wall thickening or obstruction. 3. Colonic diverticulosis. No evidence for acute diverticulitis. 4. Mild cardiomegaly. 5. Additional findings as described above. Hospital Course (1) Acute renal insufficiency: Pt is a 72 yo male with past medical history of gout, atrial fibrillation on chronic anticoagulation, urinary frequency, hypertension, and severe sleep apnea with CPAP use who presented to the ED for evaluation for dehydration. Patient had elevated creatinine level indicative of acute kidney injury. Patient is status post 1 L of IV fluid in the ED and is hemodynamically stable. ARTURO - Likely prerenal in the setting of poor water intake, loose stools for multiple weeks/months, and multiple BP medications that can affect kidney function - History of prostate cancer requiring radiation; post renal component seems unlikely considering lack of urinary symptoms and significant improvement with adequate hydration - Cr peaked at 2.71 and has since downtrended but not at baseline; Cr 1.29 upon discharge - Continue to hold spironolactone, lisinopril, indapamide upon discharge - recommend repeat BMP tomorrow 08/19 to ensure potassium normalizes and ARTURO continues to improve; recommend reinitiation of lisinopril once kidney function stabilizes - recommend against the addition of indapamide and spironolactone as these they have contributed to ARTURO; would watch BP closely. Discussed lifestyle modifications to also help lower BP Hyperkalemia - stable at 5.2, down from 5.4 yesterday - recheck BMP tomorrow 08/19 HTN - stop spironolactone and indapamide as above - hold lisinopril until hyperkalemia resolves and ensure ARTURO continues to improve - continue metoprolol Loose stools - unsure of etiology at this time; may be infectious, however, w/o prolonged symptoms - unlikely to be food poisoning given prolonged course - unlikely to be C. difficile as no recent antibiotic use and stool still very much has solid components - Stool PCR ordered but never collected as pt never had BM during hospitalization - suspect change in BM related to more of an IBS picture vs. infectious symptoms - recommend f/u with PCP HLD -Continue statin Severe sleep apnea -CPAP at night at 7 cmH20 Afib - Continue metoprolol - Patient does not take diltiazem which is in his medication list- rate controlled while hospitalized, no need to add back if pt not taking at home - Continue Xarelto for anticoagulation Gout -Continue allopurinol (2) Hypertension: (3) Loose stools: (4) Hyperlipidemia, acquired: (5) Severe sleep apnea: (6) Atrial fibrillation: (7) Gout: (8) Hyperkalemia: Plan DVT ppx: Xarelto Diet: Heart Healthy Dispo: home Code Status: Full Total Time Total Time Spent Total Time Spent (In Minutes): <30 Discharge Plan Discharge Items Patient Disposition: Home - Self-Care Reason For Visit: DEHYDRATION Discharge Diagnosis: acute kidney injury secondary to dehydration from loose stools and diuretics Activity: Resume your previous activity Non-emergency contact: Primary Care Provider Call non-emergency contact if: you have any medication questions Follow-up/Referrals: Girish Lamb MD [Primary Care Provider] - Diet: Regular Fluids: 1500ml (6 cups) Ambulatory Orders: Basic Metabolic Panel (Routine) Timeframe: [id number] Location: Determined by Patient Ordered By: Anel Ellis Add Attending Provider Instructions: You were admitted to the hospital for dehydration that manifested as an acute kidney injury. You were treated with IV fluids. Your kidney function returned to almost normal prior to discharge. Upon discharge, you should continue to stay well hydrated (at least 1-2 liters of water per day). To ensure that your kidneys are still headed in the right direction, you should obtain lab work tomorrow, Saturday 08/19. You should then follow up with your primary care provider to discuss these results. A discharge summary will be sent to your primary care physician to ensure continuity of care. Please bring this discharge summary with you to your next office appointment so that your provider can review it at that time. Medications: Your medication list has been reviewed and reconciled upon discharge to ensure accuracy and continuity of care. An updated list of all your medications is included with your hospital discharge paperwork. Please review this list closely and make note of any changes to your medications. - As above, you should stop taking your indapamide and spironolactone. You should also avoid your lisinopril until your kidneys have completely recovered. You should discuss reinitiating this with your primary care provider. Follow up appointments: - Make a follow up appointment with your PCP within the next week. It is very important that you follow up with them shortly after discharge from the hospital. - Keep all of your follow up appointments as already scheduled. If you cannot make an appointment, notify your provider. CONTACT YOUR PRIMARY CARE PROVIDER if you experience any of the following: - Difficulty following your treatment plan - Difficulty taking any of your medications CALL 911 OR GO TO THE EMERGENCY DEPARTMENT if you experience any of the following: - Sudden, severe abdominal pain or nausea/vomiting - Severe chest pain or chest pain that radiates to your jaw or arm - Sudden, severe shortness of breath or difficulty breathing Pending Studies at Discharge: No Stand-Alone Forms: My [facility], Smoking Cessation Medications and DC Order Prescriptions: Continued colchicine 0.6 mg capsule 0.6 mg PO UD PRN (Reason: gout) Patient Comments: last use a couple years ago rivaroxaban 20 mg tablet 20 mg PO QAM Qty: 90 3RF allopurinol 100 mg tablet 100 mg PO BID Qty: 180 3RF vardenafil 20 mg tablet 20 mg PO UD cholecalciferol (vitamin D3) 5,000 unit capsule 5,000 units PO QAM cyanocobalamin (vitamin B-12) 1,000 mcg capsule 1,000 mcg PO QAM Myrbetriq 25 mg tablet extended release 24 hr 25 mg PO QAM sildenafil 100 mg tablet 100 mg PO UD PRN (Reason: sexual activity) Rx Instructions: administer 30 minutes to 4 hours before activity atorvastatin 20 mg tablet 20 mg PO DAILY tamsulosin [Flomax] 0.4 mg capsule 0.4 mg PO Q2D omega 1-rms-ugm-fish oil [Fish Oil] 1,000 mg (120 mg-180 mg) Capsule 1 cap PO DAILY metoprolol tartrate 25 mg tablet 50 mg PO QAM metoprolol tartrate 25 mg tablet 25 mg PO HS diltiazem HCl [Tiadylt ER] 360 mg capsule,extended release 24 hr 360 mg PO QAM Discontinued indapamide 1.25 mg tablet 1.25 mg PO QAM Qty: 90 3RF spironolactone 25 mg tablet 25 mg PO DAILY Qty: 90 2RF No Action lisinopril 40 mg tablet 20 mg PO DAILY Qty: 90 3RF Discharge Orders: Discharge Order (Routine); Ordered 08/18/22 Ordered By: Anel Ellis Admission Data Admit Date/Time: 08/16/22 21:14 Attending Provider: Zoltan Jasso Admit Provider: Ayden Haro Primary Care Provider: Girish Lamb Other Providers: Bon Grant Other Interventions: Discharge Summary Assessment (RN) Last Done: 08/18/22 14:36 Supervising Physician Co-Signing Physician Notes I personally examined the patient and verified all sanders points of history and exam, discussed case, and agree with decision making with Dr Ellis feeling better and feels up to getting home. Discussed stopping indapamide and spironolactone, discussed monitoring blood pressure and increasing exercise. Discussed continuing metoprolol at current dosing, and resuming lisinopril once potassium normalizes. Discussed basic metabolic panel tomorrow, and then possibly again later this coming week depending on the results. Answered all questions the best my ability and to patient/ satisfaction. Vitals noted, in general he is awake and alert pleasant no distress. HEENT normocephalic atraumatic mucous membranes moist. Breathing unlabored no accessory muscle use good effort. Skin shows no rashes no pallor or icterus. Neuro without focal deficits. Acute renal failurevolume downdehydration mechanism, I agree with him that the diuretics were most likely culprit. These have now been placed on hold. Creatinine improving nicely with IV fluids. Hyperkalemia likely residual from spironolactoneand I do anticipate this to improve with time, given that is down to 5.2 from a previous high of 5.4, I do not think he requires ongoing hospital monitoring for thisbut rather holding his lisinopril in addition to the culprit diuretics, and having labs checked tomorrow, then periodically if he is not yet back to normal. Diarrheasomewhat ill-defined, fecal BioFire ordered, but that he had no bowel movements to be on this and. Doubt it would be of much yield anyway. wondered if the dehydration might be part of what was affecting his bowels, and certainly that would be reasonable. Outpatient follow-up if it recurs. Safe/stable for home -Hypertensionultimately metoprolol, lisinopril (once potassium has normalized) and lots of home monitoring. Discussed risk/benefit of this approach, discussed hypertension generally being a long-term risk rather than an acute riskdiscussed that if he does 20-30 minutes of light cardiovascular exercise daily it might be reasonable to affect better control with less medications -Hyperkalemiasuspect will continue to trickle down over time, nothing appearing to require ongoing hospitalization. Basic metabolic panel tomorrow -Diarrheaseems to have self resolved Resident Activity Tracking Resident Involvement: Resident Care Provided Care Provided: Adult Hospital Medicine
[2022-08-18 14:37] VITALS: BP 120/75
--- NOTE | 2022-08-18 18:39 | Billing Data ---
Date of Service August 18, 2022 Coding Level of Care Code 83496 IN/OBS DISCH 30 MIN/LESS
[2022-08-20 16:12] LABS: Uric Acid, Random Urine 16 mg/dL
== END 2022-08-18 15:05 | disposition home or self-care (01) ==
LOC: ED 14:18 → SUATTDRO 21:14 → 3W 21:14 → INTOOBSV 21:14 → 3W 23:06